=== PATIENT | female | born 1975 | race Caucasian/White ===

== ENCOUNTER 2024-08-24 22:08 | Emergency (ER) | payer OTHER ==
[~2024-08-24] VITALS: Ht 157.5 cm; Wt 59.0 kg
[2024-08-24] MEDS ORDERED: diphenhydrAMINE 50 MG/1 ML VIAL ONE (22:10)
[2024-08-24] MEDS ORDERED: methylPREDNISolone SOD SUCC 125 MG/2 ML VIAL ONE (22:16)
[2024-08-24] MEDS ORDERED: FAMOTIDINE. 20 MG/2 ML VIAL IV ONE (22:17)
[2024-08-24 22:22] LABS: BASOPHILS # (AUTO) 0.1 K/UL (0.0-0.2); BASOPHILS % (AUTO) 0.9 % (0.0-2.0); EOSINOPHILS # (AUTO) 0.3 K/uL (0.0-0.7); EOSINOPHILS % (AUTO) 3.4 % (0.0-7.0); HEMATOCRIT 40.3 % (31.2-41.9); HEMOGLOBIN 13.4 g/dL (10.9-14.3); MEAN CORPUSCULAR HEMOGLOBIN 31.7 uug (24.7-32.8); MEAN CORPUSCULAR HGB CONC 33 g/dL (32.3-35.6); MEAN CORPUSCULAR VOLUME 95.2 fL (75.5-95.3); MONOCYTES # (AUTO) 0.8 K/uL (0.1-1.30); MONOCYTES % (AUTO) 9.1 % (0.0-11.0); NEUTROPHILS # (AUTO) 5.2 K/uL (1.8-8.9); NEUTROPHILS % (AUTO) 62.6 % (38.5-71.5); PLATELET COUNT (AUTO) 262 K/uL (179-408); RED BLOOD CELL COUNT(AUTO) 4.24 MIL/uL (3.63-4.92); RED CELL DISTRIBUTION WIDTH 12.5 % (12.3-17.7); WHITE BLOOD COUNT (AUTO) 8.3 K/uL (3.8-11.8)
[2024-08-24 22:25] LABS: DIFFERENTIAL COMMENT 1
[2024-08-24] MEDS: FAMOTIDINE. 20 MG/2 ML VIAL IV ONE (22:30)
[2024-08-24] MEDS: methylPREDNISolone SOD SUCC 125 MG/2 ML VIAL IV ONE (22:30)
[2024-08-24] MEDS: EPINEPHRINE-PF 1:1000 1 MG/ML AMPUL/VIAL SQ ONE (22:30)
[2024-08-24 22:44] LABS: CALCIUM 9.1 mg/dL (8.5-10.1); CREATININE 0.7 mg/dL (0.6-1.3); POTASSIUM 3.7 mmol/L (3.5-5.1)
[2024-08-24 22:50] LABS: ALBUMIN 3.9 g/dL (3.4-5.0); BILIRUBIN,DIRECT 0.1 mg/dL (0.0-0.2); BILIRUBIN,TOTAL 0.4 mg/dL (0.2-1.0); TOTAL PROTEIN, SERUM 7.8 g/dL (6.4-8.2)
[2024-08-24] MEDS ORDERED: PRED20TA PO (23:57)
[2024-08-24] MEDS ORDERED: DIPH25TA25 PO (23:57)
[2024-08-25] MEDS: IV NORMAL SALINE 1000 ML BAG IV ONE (00:41)
[2024-08-25 01:31] VITALS: BP 108/62; TEMP 97.8; O2SAT 99
== END 2024-08-25 01:32 | disposition home or self-care (01) ==
LOC: ER 22:08
DX: T78.3XXA Angioneurotic edema, initial encounter (principal); Z79.52 Long term (current) use of systemic steroids; Z88.6 Allergy status to analgesic agent; Y84.8 Other medical procedures as the cause of abnormal reaction of the patient, or of later complication, without mention of misadventure at the time of the procedure; Y82.8 Other medical devices associated with adverse incidents
CPT/HCPCS: 36415; 85025; A4606; A4663; J0171; J1200; J1308; J2919; J7040